=== PATIENT | female | born 1965 | race African-American/Black ===

== ENCOUNTER 2024-08-05 14:43 | Emergency (ER) | payer OTHER, MEDICAID ==
[~2024-08-05] VITALS: Ht 165.1 cm; Wt 62.6 kg
[2024-08-05 14:46] VITALS: O2SAT 98
[2024-08-05] MEDS: SODIUM CHLORIDE 0.9% (SEPSIS BOLUS) IV ONE (15:06)
[2024-08-05 15:14] LABS: BASOPHILS % 0.7 % (0.0-2.0); EOSINOPHILS % 0.9 % (0.0-5.0); HEMATOCRIT. 35.2 % (36.0-48.0); HEMOGLOBIN. 11.4 g/dL (12.0-16.0); LYMPHOCYTES % 14.9 % (20.0-50.0); MEAN CORPUSCULAR HEMOGLOBIN 26.3 pg (28.0-32.0); MEAN CORPUSCULAR HGB CONC 32.2 g/dL (31.0-37.0); MEAN CORPUSCULAR VOLUME 81.7 fL (81.0-99.0); MEAN PLATELET VOLUME 7.3 fl (7.4-10.4); MONOCYTES % 9.3 % (2.0-8.0); NEUTROPHILS % 74.2 % (40.0-76.0); PLATELET 453 x1000/uL (130-400); RED BLOOD CELL COUNT 4.31 mill/uL (4.2-5.4); RED CELL DISTRIBUTION WIDTH 15.4 % (11.6-14.6); WHITE BLOOD COUNT 16.5 x1000/uL (4.5-11.0)
[2024-08-05 15:22] LABS: CHLORIDE 105 mEq/L (98-107); SODIUM 138 mEq/L (136-145)
[2024-08-05 15:23] LABS: CALCIUM 9.5 mg/dL (8.7-10.4); CARBON DIOXIDE 17 mEq/L (21-32)
[2024-08-05 15:28] LABS: CREATININE 0.7 mg/dL (0.6-1.0); GLUCOSE 187 mg/dL (70-105); UREA NITROGEN BLOOD 13 mg/dL (9-23)
[2024-08-05 15:30] LABS: ALANINE AMINOTRANSFERASE 15 IU/L (10-49); ALBUMIN 4.3 g/dL (3.2-4.8); ASPARTATE AMINOTRANSFERASE 13 IU/L (<34)
[2024-08-05 15:31] LABS: BILIRUBIN DIRECT 0.2 mg/dL (<=3.0); BILIRUBIN TOTAL 0.4 mg/dL (0.1-1.0); PROTEIN TOTAL 8.1 g/dL (6.0-8.3)
[2024-08-05] MEDS: PIPERACILLIN/TAZO 3.375G/50ML 50 ML IV ONE (15:39)
[2024-08-05] MEDS: VANCOMYCIN 1G PREMIX 200 ML IV ONE (15:49)
[2024-08-05 15:56] LABS: POTASSIUM 2.8 mEq/L (3.5-5.1)
[2024-08-05 16:52] LABS: INR 1.2; PROTHROMBIN TIME 12.3 sec (9.6-11.0)
[2024-08-05] MEDS: POTASSIUM CHLORIDE 20MEQ TABLET SR PO ONE (17:22)
[2024-08-05] MEDS: KCL 10MEQ/50ML PREMIX 50 ML IV SCH (17:22)
[2024-08-05 19:51] VITALS: BP 150/70; PULSE 88; RESP 19; TEMP 36.4; O2SAT 99
== END 2024-08-05 20:29 | disposition short-term general hospital (02) ==
LOC: ER 14:43 → EDBEDREQ 15:19 → ER 20:29
DX: A41.9 Sepsis, unspecified organism (principal); R65.20 Severe sepsis without septic shock; E87.6 Hypokalemia; L89.329 Pressure ulcer of left buttock, unspecified stage; E11.9 Type 2 diabetes mellitus without complications; I10 Essential (primary) hypertension; Z79.899 Other long term (current) drug therapy; Z98.890 Other specified postprocedural states
CPT/HCPCS: 99291; 86870; 96365; 73700; 96366; 96367; 96361; 80076; 80048; 83880; 83605; 85025; 85610; 86850; 86900; 86901; 87040; 84145; 71045; 93005; 96368; 36415; J2543; J3480; J3370; J7030